=== PATIENT | female | born 1990 | race American Indian/Alaskan Native ===

== ENCOUNTER 2022-01-18 16:23 | Emergency (ER) | payer OTHER ==
[2022-01-18] MEDS ORDERED: HYDROcodone/ACETAMINOPHEN 5-325 MG TAB PO ONE (17:30)
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
[2022-01-18 19:30] VITALS: BP 127/72
== END 2022-01-18 19:30 | disposition home or self-care (01) ==
LOC: ED 16:23
DX: S13.9XXA Sprain of joints and ligaments of unspecified parts of neck, initial encounter (principal); S63.502A Unspecified sprain of left wrist, initial encounter; S43.402A Unspecified sprain of left shoulder joint, initial encounter; S20.212A Contusion of left front wall of thorax, initial encounter; X58.XXXA Exposure to other specified factors, initial encounter; Y93.89 Activity, other specified; Y92.89 Other specified places as the place of occurrence of the external cause; Y99.8 Other external cause status
CPT/HCPCS: 72040; 99283